=== PATIENT | female | born 1985 | race Caucasian/White ===

== ENCOUNTER 2017-10-01 09:21 | Inpatient (IN) | payer MEDICAID ==
[~2017-10-01] VITALS: Ht 165.1 cm; Wt 84.4 kg
[2017-10-01 09:21] VITALS: BP_SYST 101
[2017-10-01] MEDS ORDERED: CLINDAMYCIN PHOSPHATE 900 mg/50mL D5W IV ONE (10:14)
[2017-10-01] MEDS ORDERED: PROPOFOL 200MG/ 20ML VIAL (DIPRIVAN) IV ONE (10:14)
[2017-10-01] MEDS ORDERED: NEOSTIGMINE METHYLSULFATE 1 MG/ML, 10 ML VIAL IVP ONE (10:14)
[2017-10-01] MEDS ORDERED: ONDANSETRON HCL 4 MG/2 ML VIAL IVP ONE ×2 (10:14→12:00)
[2017-10-01] MEDS ORDERED: fentaNYL CITRATE 250 MCG/5 ML AMP IV ONE (10:14)
[2017-10-01] MEDS ORDERED: SEVOFLURANE 15 MIN GAS INH ONE (10:14)
[2017-10-01] MEDS ORDERED: BUPIVACAINE /EPINEPHRINE/PF 0.5% 30 ML VIAL INJ ONE (10:14)
[2017-10-01] MEDS ORDERED: GENTAMICIN 80 mg/ NS 100 mL IVPB IV ONE (10:14)
[2017-10-01] MEDS ORDERED: ROCURONIUM BROMIDE 10 MG/ML (ZEMURON) IV ONE (10:14)
[2017-10-01] MEDS ORDERED: GLYCOPYRROLATE 0.2 MG/ML VIAL IJ ONE (10:14)
[2017-10-01] MEDS ORDERED: NS 1000 ML BAG IV ONE (10:14)
[2017-10-01] MEDS ORDERED: LR 1,000 ML IV.SOLN IV ONE (10:14)
[2017-10-01] MEDS ORDERED: CEFAZOLIN 1 GM IVPB PREMIX 50 ML IV ONE (10:14)
[2017-10-01 10:34] LABS: BASOPHILS % (AUTO) 0.4 % (0.0-2.0); EOSINOPHILS # (AUTO) 0.1 K/uL (0.0-0.4); EOSINOPHILS % (AUTO) 0.9 % (0.0-4.0); HEMATOCRIT 34.8 % (36-48); MEAN CORPUSCULAR HEMOGLOBIN 32 pg (27-31); MEAN CORPUSCULAR HGB CONC 35 % (32-36); MEAN CORPUSCULAR VOLUME 92 fL (79.0-98.0); MONOCYTES # (AUTO) 0.6 K/uL (0.0-1.0); MONOCYTES % (AUTO) 7.7 % (1.7-9.3); NEUTROPHILS # (AUTO) 5.8 K/uL (1.8-7.7); PLATELET COUNT (AUTO) 434 K/uL (130-430); RED BLOOD CELL COUNT(AUTO) 3.78 MIL/uL (4.2-6.2); RED CELL DISTRIBUTION WIDTH 11.7 % (9.0-15.0); WHITE BLOOD COUNT (AUTO) 7.5 K/uL (4.8-10.8)
[2017-10-01 10:40] LABS: BILIRUBIN,URINE NEGATIVE (NEGATIVE); BLOOD, URINE NEGATIVE (NEGATIVE); CLARITY/URINE CLEAR (CLEAR); COLOR,URINE YELLOW (YELLOW); GLUCOSE,URINE NEGATIVE (NEGATIVE); KETONES,URINE NEGATIVE (NEGATIVE); LEUKOCYTE ESTERASE ,URINE NEGATIVE (NEGATIVE); NITRITE, URINE NEGATIVE (NEGATIVE); PH,URINE 5.5 (5.0-8.0); PROTEIN URINE NEGATIVE (NEGATIVE); UROBILINOGEN,URINE 0.2 (0.2-1.0)
[2017-10-01 10:52] LABS: CALCIUM 8.5 mg/dL (8.4-11.0); CREATININE 0.65 mg/dL (0.55-1.30); POTASSIUM 4.5 mmol/L (3.5-5.1)
[2017-10-01 10:55] LABS: PROTHROMBIN TIME 10.2 SECS (9.5-12.5)
[2017-10-01 10:57] LABS: ALBUMIN 3.5 g/dL (3.4-4.8); TOTAL BILIRUBIN 0.3 mg/dL (0.0-1.0)
[2017-10-01] MEDS ORDERED: IBUP-1969 PO (11:47)
[2017-10-01] MEDS ORDERED: HYDR-1189 PO (11:47)
[2017-10-01] MEDS ORDERED: MORPHINE 2 MG/ML INJ. SYRINGE IVP ONE (12:00)
[2017-10-01 12:26] VITALS: BP_SYST 113
[2017-10-01] MEDS ORDERED: HYDROcodone/ACETAMIN 5-325 MG TAB (NORCO/ VICODIN) PO PRN ×2 (15:45)
[2017-10-01] MEDS ORDERED: LR 1,000 ML IV SCH (17:58)
[2017-10-01] MEDS ORDERED: METOCLOPRAMIDE HCL 10 MG/2 ML VIAL IVP PRN (18:00)
[2017-10-01] MEDS ORDERED: MORPHINE 4 MG/ML INJ. SYRINGE IVP PRN ×3 (18:00)
[2017-10-01 18:11] VITALS: BP_SYST 113
[2017-10-01] MEDS ORDERED: MORPHINE 4 MG/ML INJ. SYRINGE ONE (18:36)
[2017-10-01] MEDS ORDERED: MEPERIDINE HCL/PF 25 MG/ML DISP.SYRIN ONE (18:51)
[2017-10-01] MEDS ORDERED: MEPERIDINE HCL/PF 25 MG/ML DISP.SYRIN IVP ONE (19:00)
[2017-10-01 20:00] VITALS: BP_SYST 114
[2017-10-01] MEDS: GENTAMICIN 80 mg/100 mL NS 100 ML IV SCH (20:33)
[2017-10-01] MEDS: MEPERIDINE HCL/PF 50 MG/ML AMP IVP PRN (20:38)
[2017-10-02 00:36] VITALS: BP_SYST 100
[2017-10-02] MEDS: MEPERIDINE HCL/PF 50 MG/ML AMP IVP PRN ×5 (00:39→19:35)
[2017-10-02] MEDS: CLINDAMYCIN 900 MG in D5W 100 ML IV SCH ×3 (00:40→13:45)
[2017-10-02] MEDS ORDERED: ACETAMINOPHEN 500 MG TABLET PO PRN (01:00)
[2017-10-02 04:52] VITALS: BP_SYST 97
[2017-10-02] MEDS: LR 1,000 ML IV SCH ×4 (06:26→15:39)
[2017-10-02 07:40] VITALS: BP_SYST 97
[2017-10-02 11:31] VITALS: BP_SYST 104
[2017-10-02 14:20] LABS: BASOPHILS % (AUTO) 0.1 % (0.0-2.0); EOSINOPHILS % (AUTO) 0.2 % (0.0-4.0); HEMOGLOBIN 10.8 g/dL (12.0-16.0); LYMPHOCYTES # (AUTO) 1.3 K/uL (1.0-5.5); LYMPHOCYTES % (AUTO) 11.9 % (20.5-51.5); MEAN CORPUSCULAR HEMOGLOBIN 32 pg (27-31); MEAN CORPUSCULAR HGB CONC 34 % (32-36); MEAN CORPUSCULAR VOLUME 93 fL (79.0-98.0); MONOCYTES # (AUTO) 0.6 K/uL (0.0-1.0); MONOCYTES % (AUTO) 5.1 % (1.7-9.3); NEUTROPHILS # (AUTO) 9.2 K/uL (1.8-7.7); PLATELET COUNT (AUTO) 425 K/uL (130-430); RED BLOOD CELL COUNT(AUTO) 3.44 MIL/uL (4.2-6.2); RED CELL DISTRIBUTION WIDTH 11.7 % (9.0-15.0); WHITE BLOOD COUNT (AUTO) 11.1 K/uL (4.8-10.8)
[2017-10-02 14:46] LABS: NEUTROPHILS % (AUTO) 82.7 % (40.0-70.0)
[2017-10-02 15:31] VITALS: BP_SYST 99
[2017-10-02] MEDS: GENTAMICIN 80 mg/100 mL NS 100 ML IV SCH (18:22)
[2017-10-02 20:00] VITALS: BP_SYST 100
[2017-10-03] MEDS: LR 1,000 ML IV SCH ×2 (00:39→07:39)
[2017-10-03 00:40] VITALS: BP_SYST 103
[2017-10-03] MEDS: MEPERIDINE HCL/PF 50 MG/ML AMP IVP PRN ×2 (00:42→04:32)
[2017-10-03] MEDS: CLINDAMYCIN 900 MG in D5W 100 ML IV SCH ×2 (00:44→05:10)
[2017-10-03 04:44] VITALS: BP_SYST 109
[2017-10-03 08:00] VITALS: BP_SYST 116
[2017-10-03 09:39] VITALS: BP_SYST 116
[2017-10-03] MEDS ORDERED: DOXY100T2 PO (09:49)
[2017-10-03] MEDS ORDERED: METR500T PO (09:49)
[2017-10-03] MEDS ORDERED: OXYC-130 PO (09:49)
== END 2017-10-03 10:15 | disposition home or self-care (01) | DRG 513 ==
LOC: SED 09:21 → SMU 12:07
PROVIDERS: ADMIT Specialist; ATTEND Specialist
PROC: 0UB54ZZ Excision of Right Fallopian Tube, Percutaneous Endoscopic Approach (ICD-10-PCS; 2017-10-01)
PROC: 0DNW4ZZ Release Peritoneum, Percutaneous Endoscopic Approach (ICD-10-PCS; principal; 2017-10-01 15:00)
DX: N70.91 Salpingitis, unspecified (principal); E66.01 Morbid (severe) obesity due to excess calories; F12.90 Cannabis use, unspecified, uncomplicated; N73.6 Female pelvic peritoneal adhesions (postinfective); N83.201 Unspecified ovarian cyst, right side; Z90.49 Acquired absence of other specified parts of digestive tract; Z68.31 Body mass index [BMI] 31.0-31.9, adult
CPT/HCPCS: 36415; 80053; 81003; 83690-TC; 85025; 85610-TC; 85730-TC; 87070; 87081; 88305; 94010; 96374; 96375; 99285; C1727; J0690; J1580; J2175; J2270; J2405; J2704; J2710; J3010; J3490; J7030; J7060; J7120

== ENCOUNTER 2017-10-28 12:07 | Emergency (ER) | payer MEDICAID ==
[~2017-10-28] VITALS: Ht 165.1 cm; Wt 82.6 kg
[~2017-10-28 12:07] MED LIST: DOXY100T2 PO; METR500T PO; OXYC-130 PO
[2017-10-28 12:16] VITALS: BP_SYST 130
--- NOTE | 2017-10-28 15:16 | NUR ---
Pt report received from VENUS Looney. Pt c/o Left abdominal pain. Pt with hx of cyst and right fallopian tube removal and pt states that pain is similar to that pain. Pt denies N/V/D, no c/o dysuria, no vaginal bleeding or discharge.
--- NOTE | 2017-10-28 15:16 | NUR ---
Patient to ER bed 1 to gown for evaluation. Side rails up. Report given to JAJA.
--- NOTE | 2017-10-28 15:30 | NUR ---
Dr. Parker at bedside to assess pt.
[2017-10-28] MEDS ORDERED: NACL 0.9% 1,000 ML IV ONE (17:01)
[2017-10-28] MEDS ORDERED: MORPHINE 4 MG/ML INJ. SYRINGE IM ONE (17:15)
[2017-10-28] MEDS ORDERED: ONDANSETRON HCL 4 MG/2 ML VIAL IVP ONE (17:15)
--- NOTE | 2017-10-28 17:30 | NUR ---
Pt report given to VENUS Arango.
--- NOTE | 2017-10-28 17:31 | NUR ---
Assumed care of pt. Received report from Paulino DONOVAN.
[2017-10-28 17:35] LABS: BASOPHILS % (AUTO) 0.5 % (0.0-2.0); EOSINOPHILS # (AUTO) 0.2 K/uL (0.0-0.4); EOSINOPHILS % (AUTO) 4.2 % (0.0-4.0); HEMATOCRIT 36.5 % (36-48); HEMOGLOBIN 12.5 g/dL (12.0-16.0); LYMPHOCYTES # (AUTO) 1.7 K/uL (1.0-5.5); LYMPHOCYTES % (AUTO) 29.3 % (20.5-51.5); MEAN CORPUSCULAR HEMOGLOBIN 31 pg (27-31); MEAN CORPUSCULAR HGB CONC 34 % (32-36); MEAN CORPUSCULAR VOLUME 91 fL (79.0-98.0); MONOCYTES # (AUTO) 0.5 K/uL (0.0-1.0); MONOCYTES % (AUTO) 8.7 % (1.7-9.3); NEUTROPHILS # (AUTO) 3.5 K/uL (1.8-7.7); NEUTROPHILS % (AUTO) 57.3 % (40.0-70.0); PLATELET COUNT (AUTO) 373 K/uL (130-430); RED BLOOD CELL COUNT(AUTO) 4.01 MIL/uL (4.2-6.2); RED CELL DISTRIBUTION WIDTH 12.6 % (9.0-15.0); WHITE BLOOD COUNT (AUTO) 5.9 K/uL (4.8-10.8)
[2017-10-28 17:41] LABS: CALCIUM 8.8 mg/dL (8.4-11.0); CREATININE 0.52 mg/dL (0.55-1.30); POTASSIUM 3.7 mmol/L (3.5-5.1)
[2017-10-28 17:46] LABS: ALBUMIN 3.9 g/dL (3.4-4.8); TOTAL BILIRUBIN 0.2 mg/dL (0.0-1.0)
--- NOTE | 2017-10-28 18:13 | NUR ---
Pt off unit to ultrasound
[2017-10-28 18:26] LABS: BILIRUBIN,URINE NEGATIVE (NEGATIVE); BLOOD, URINE NEGATIVE (NEGATIVE); CLARITY/URINE CLEAR (CLEAR); COLOR,URINE YELLOW (YELLOW); GLUCOSE,URINE NEGATIVE (NEGATIVE); KETONES,URINE NEGATIVE (NEGATIVE); LEUKOCYTE ESTERASE ,URINE 1+ (NEGATIVE); NITRITE, URINE NEGATIVE (NEGATIVE); PH,URINE 6.5 (5.0-8.0); PROTEIN URINE NEGATIVE (NEGATIVE); UROBILINOGEN,URINE 0.2 (0.2-1.0)
[2017-10-28 18:45] LABS: BACTERIA,URINE MODERATE /HPF (None Seen); RBC,URINE 0-3 /HPF (0-3); YEAST,URINE Few /HPF (None Seen)
--- NOTE | 2017-10-28 18:49 | NUR ---
Back from ultrasound, tolerated well.
--- NOTE | 2017-10-28 18:55 | NUR ---
Pt return to unit. Tolerated well.
--- NOTE | 2017-10-28 19:05 | NUR ---
Pt states improvement in L abd pain post morphine administration, but c/o headache pain. Dr. Parker made aware. Awaiting orders.
--- NOTE | 2017-10-28 19:10 | NUR ---
Report given to Klaus DONOVAN.
[2017-10-28] MEDS ORDERED: ACETAMINOPHEN 325 MG TABLET PO ONE (19:15)
--- NOTE | 2017-10-28 19:15 | NUR ---
Report received and patient endorsed by am nurse Arnago.
--- NOTE | 2017-10-28 19:22 | NUR ---
Tylenol given for headache as ordered.
--- NOTE | 2017-10-28 20:05 | NUR ---
Patient given written and verbal discharge instructions and verbalizes understanding. ER MD discussed with patient the results and treatment provided. Patient in stable condition. ID arm band removed. IV catheter removed intact and dressing applied, no active bleeding. Rx of [] given. Patient educated on pain management and to follow up with PMD. Pain Scale 1/10. Patient tolerable with this level. Patient discharged to family member. Opportunity for questions provided and answered.
[2017-10-28 21:36] VITALS: BP_SYST 127
== END 2017-10-28 21:36 | disposition home or self-care (01) ==
LOC: SED 12:07
DX: R10.32 Left lower quadrant pain (principal)
CPT/HCPCS: 36415; 76830; 76857; 80053; 81000; 83690; 85025; 87086; 96361; 96374; 96375; 99285; J2270; J2405; J7030

== ENCOUNTER 2019-07-31 14:55 | Emergency (ER) | payer SELFPAY ==
[~2019-07-31] VITALS: Ht 165.1 cm; Wt 83.5 kg
[2019-07-31 15:15] VITALS: BP_SYST 117
--- NOTE | 2019-07-31 15:18 | NUR ---
AMBULATED TO BED 7
[2019-07-31] MEDS ORDERED: NACL 0.9% 1,000 ML IV ONE (15:22)
[2019-07-31] MEDS ORDERED: ONDANSETRON HCL 4 MG/2 ML VIAL IVP ONE (15:30)
[2019-07-31] MEDS ORDERED: MORPHINE 4 MG/ML INJ. SYRINGE IVP ONE (15:30)
--- NOTE | 2019-07-31 15:30 | NUR ---
ER at bedside examining patient.
--- NOTE | 2019-07-31 15:45 | NUR ---
Pt presenst to ED c/o abd pain .
[2019-07-31 15:50] LABS: BASOPHILS % (AUTO) 0.4 % (0.0-2.0); EOSINOPHILS # (AUTO) 0.2 K/uL (0.0-0.4); EOSINOPHILS % (AUTO) 3.6 % (0.0-4.0); HEMATOCRIT 38.2 % (36-48); HEMOGLOBIN 12.8 g/dL (12.0-16.0); LYMPHOCYTES # (AUTO) 1.4 K/uL (1.0-5.5); LYMPHOCYTES % (AUTO) 20.8 % (20.5-51.5); MEAN CORPUSCULAR HEMOGLOBIN 31 pg (27-31); MEAN CORPUSCULAR HGB CONC 34 % (32-36); MEAN CORPUSCULAR VOLUME 92 fL (79.0-98.0); MONOCYTES # (AUTO) 0.5 K/uL (0.0-1.0); MONOCYTES % (AUTO) 7.9 % (1.7-9.3); NEUTROPHILS # (AUTO) 4.5 K/uL (1.8-7.7); NEUTROPHILS % (AUTO) 67.3 % (40.0-70.0); PLATELET COUNT (AUTO) 321 K/uL (130-430); RED BLOOD CELL COUNT(AUTO) 4.17 MIL/uL (4.2-6.2); RED CELL DISTRIBUTION WIDTH 13.7 % (9.0-15.0); WHITE BLOOD COUNT (AUTO) 6.7 K/uL (4.8-10.8)
[2019-07-31 16:02] LABS: BILIRUBIN,URINE NEGATIVE (NEGATIVE); BLOOD, URINE NEGATIVE (NEGATIVE); CLARITY/URINE CLEAR (CLEAR); COLOR,URINE YELLOW (YELLOW); GLUCOSE,URINE NEGATIVE (NEGATIVE); KETONES,URINE NEGATIVE (NEGATIVE); LEUKOCYTE ESTERASE ,URINE NEGATIVE (NEGATIVE); NITRITE, URINE NEGATIVE (NEGATIVE); PROTEIN URINE NEGATIVE (NEGATIVE); UROBILINOGEN,URINE 0.2 (0.2-1.0)
[2019-07-31 16:10] LABS: CALCIUM 8.8 mg/dL (8.4-11.0); CREATININE 0.53 mg/dL (0.55-1.30); POTASSIUM 3.7 mmol/L (3.5-5.1)
[2019-07-31 16:14] LABS: PROTHROMBIN TIME 9.9 SECS (9.5-12.5)
[2019-07-31 16:15] LABS: ALBUMIN 3.9 g/dL (3.4-4.8); TOTAL BILIRUBIN 0.4 mg/dL (0.0-1.0)
--- NOTE | 2019-07-31 16:15 | NUR ---
Pt tolerated medication well.
[2019-07-31] MEDS ORDERED: IBUPROFEN 800 MG TABLET PO ONE (17:15)
--- NOTE | 2019-07-31 17:40 | NUR ---
Pt reports pain tolerable. Continuing to monitor.
[2019-07-31 17:50] VITALS: BP_SYST 118
--- NOTE | 2019-07-31 17:50 | NUR ---
Patient given written and verbal discharge instructions and verbalizes understanding. ER MD discussed with patient the results and treatment provided. Patient in stable condition. ID arm band removed. IV catheter removed intact and dressing applied, no active bleeding. Rx of TYL#3,ZOFRAN given. Patient educated on pain management and to follow up with PMD. Pain Scale 2. Opportunity for questions provided and answered. Medication side effect fact sheet provided.
== END 2019-07-31 17:50 | disposition home or self-care (01) ==
LOC: SED 14:55
DX: R10.32 Left lower quadrant pain (principal); R10.2 Pelvic and perineal pain; Z79.899 Other long term (current) drug therapy
CPT/HCPCS: 36415; 76830; 76857; 80053; 81003; 83605; 83690; 85025; 85610; 85730; 87040; 96374; 96375; 99284; J2270; J2405; J7030